=== PATIENT | female | born 1960 | race Caucasian/White ===

== ENCOUNTER → 2017-01-20 | Outpatient (CLI) | payer OTHER ==
[~2017-01-20] VITALS: Ht 165.1 cm; Wt 98.5 kg
[~2017-01-20] MED LIST: ADULT LOW DOSE81 MG PO; ADVAIR 250-501 EACH INH; AMBIEN 10 MG TA10 MG PO; AMBIEN 5 MG TABL5 M1 PO; ASMANEX0.24 G1 INH; BYSTOLIC 5 MG5 M1 PO; CALCIUM 600 +1 EAC1 PO; CALCIUM CITRAT1 EA15 PO; CENTRUM SILVER1 EAC1 PO; COLACE100 MG PO; CRESTOR5 MG PO; CYMBALTA60 MG PO; DYAZIDE 37.5-21 EACH PO; FIBER TABS625 MG PO; FIBER0.52 GM PO; FISH OIL 1,0001 EAC5 PO; FISH OIL 1,2001 EAC4 PO; FISHOIL; FLEXERIL PO; FOSAMAX 70 MG T70 M1 PO; GABAPENTIN600 M1 PO; HYDROCODONE-APA1 TA1 PO; IBUPROFEN 200200 M1 PO; IBUPROFEN 600600 M1; IBUPROFEN 600600 M1 PO; LOPRESSOR50 PO; LORTAB PO; MAXZIDE 75-501 EACH PO; NABUMETONE 750750 M1 PO; NEURONTIN 300300 M1 PO; NEURONTIN 300M300 M2 PO; NEURONTIN600 MG PO; NIACIN 100MG T100 M1 PO; NIACIN ER750 MG PO; NORCO 5-325 TA1 EACH PO; NORCO 7.5-3251 EACH PO; NUCYNTA50 MG PO; ONE-A-DAY WOMENS PO; PRILOSEC 20 MG20 MG PO; PROZAC 20 MG20 M1 PO; PROZAC40 MG PO; PSYLLIUM FIBE0.52 GM PO; QVAR HFA 440 MCG/UN1 INH; SINGULAIR 10 MG10 M1 PO; TOPROL XL50 MG PO; TRAMADOL 50 MG50 MG PO; VICODIN 5-3001 EACH PO; WELLBUTRIN XL300 MG PO; ZOCOR40 MG PO; ZOFRAN ODT4 MG PO
--- NOTE | ~2017-01-20 | HPC ---
[facility] [place] [address] PAIN MANAGEMENT CONSULTATION Name: SARMAD EKNT Room #: REG JADEN Conrad#: [id number] Admission: 01/20/17 Attend Phys: Bhupinder Kasper DO Discharge: Date of : 62 Report #: [id number] THIS REPORT FOR: //name// CC: MARY Kasper HISTORY OF PRESENT ILLNESS: The patient is a very pleasant 56-year-old female, prior seen in pain clinic greater than 3 years ago, in July 2013. She ultimately progressed to have revision of her L4-L5 laminectomy with excellent improvement of symptoms that was in July 2013. The patient returns to pain clinic today for consultation of new pain in the left low back, buttock, and leg. She notes following the fusion she did actually very well for about 6 months and did require a third surgery, another revision in June 2014. Following that she has done actually very well. At that time, they did bilateral L4-L5 transpedicular screws and rods. She notes in the past 4+ weeks, she has had pain in the left gluteal area radiating to the groin and down the posterior leg. Her prior symptoms had always been on the right side. She notes pain is exacerbated with standing and movement. She has some subjective weakness in the left leg, though she notes overall she feels she has been little weaker following surgeries. She denies any specific paresthesia, saddle anesthesia or bowel or bladder continence changes. The patient has continued to take anti-inflammatory medications, has used ice, heat and stretching, tramadol p.r.n. with some efficacy. Unfortunately, along with the nabumetone, she has also used little Advil. She was cautioned about using egregious amounts of nonsteroidal anti-inflammatory medications for fear of both gastritis and renal disease. REVIEW OF SYSTEMS: Complete review of systems was gone over with the patient. History of asthma for which she uses an Advair metered dose inhaler, hypertension treated with metoprolol, chronic anxiety and depression for which she takes bupropion. She does have some ongoing gastroesophageal reflux, well treated with Prilosec. SURGICAL HISTORY: As noted above. PHYSICAL EXAMINATION: GENERAL: Reveals a pleasant 56-year-old female, BMI is approximately 28 kilograms per meter squared. VITAL SIGNS: Stable. NEUROLOGIC: Alert and oriented to person, place and time; judged to be a reasonable historian. HEART: Regular and rhythmical, without murmur. LUNGS: Clear to auscultation. MUSCULOSKELETAL: Upper extremity strength is preserved. Rises from chair using [facility] [address] [place] [address] PAIN MANAGEMENT CONSULTATION Name: SARMAD KENT [facility] [id number] Admission: 01/20/17 Attend Phys: Bhupinder Kasper DO Discharge: Date of : 62 Report #: [id number] armrest. Gait is generally tandem. Lumbar flexion is modestly limited. Well-healed long midline scar compatible with surgical history. Pain is exacerbated with resistance to external rotation of the left leg. Passive internal rotation exacerbates pain. Abduction does not exacerbate pain. Lower extremity strength is generally symmetric. Modestly positive straight leg raise on the left. DIAGNOSTIC STUDIES: There are no recent diagnostic studies available for evaluation at this time. ASSESSMENT: Symptomatic lumbar radiculopathy s/p laminectomy with component of left piriformis syndrome. RECOMMENDATIONS: 1. Left piriformis injection today under fluoroscopy. 2. Follow up in 2 weeks for reevaluation, may consider left transforaminal epidural injection in the lumbar spine if indicated clinically. Thank you for allowing me to participate in the patient's care. I will keep you abreast of her progress. PROCEDURE NOTE: Left piriformis injection under fluoroscopy. PROCEDURE: After written informed consent was obtained, the patient was taken to fluoroscopy suite, placed in prone position. After sterile prep and drape, skin was raised. A 22-gauge stylet needle was placed to contact the inferior aspect of the left SI joint. Needle was withdrawn and redirected 1-2 cm caudad passing the SI joint and it was then advanced about another centimeter deeper. Negative aspiration was accomplished. 1 mL of Omnipaque was injected, which showed spread within the striations appropriately oriented for the piriformis muscle, followed with 40 mg triamcinolone plus 2 mL of 0.5% preservative-free bupivacaine. Needle was removed, the area was cleansed, Band-Aid was applied. The patient was monitored for an appropriate period of time, discharged in good and stable condition. <ELECTRONICALLY SIGNED> By: Bhupinder Kasper DO 01/24/17 0759 0624 0844 Bhupinder Kasper DO /nt
[2017-01-20 09:44] VITALS: BP 127/83
== END | disposition home or self-care (01) ==
LOC: PAIN 06:35
DX: G57.02 Lesion of sciatic nerve, left lower limb (principal); I10 Essential (primary) hypertension; J45.909 Unspecified asthma, uncomplicated; F32.89 Other specified depressive episodes; F41.8 Other specified anxiety disorders; K21.9 Gastro-esophageal reflux disease without esophagitis; Z79.899 Other long term (current) drug therapy; Z98.890 Other specified postprocedural states; Z87.891 Personal history of nicotine dependence

== ENCOUNTER → 2017-03-10 | Outpatient (CLI) | payer OTHER ==
[~2017-03-10] VITALS: Ht 165.1 cm; Wt 98.0 kg
[~2017-03-10] MED LIST changes: +HYDROCODONE-AP1 EAC6 PO
--- NOTE | ~2017-03-10 | HPC ---
[facility] [place] [address] [place] [address] PAIN MANAGEMENT CONSULTATION Name: SARMAD KENT Room #: REG [facility] Makenzie.#: [id number] Admission: 03/10/17 Attend Phys: Bhupinder Kasper DO Discharge: Date of : 62 Report #: [id number] THIS REPORT FOR: //name// CC: Анна Kasper The patient is a very pleasant 56-year-old female, prior seen in the pain clinic for symptomatic lumbar radiculopathy status post decompressive laminectomy, component of left piriformis syndrome. She was seen 01/20/2017, though prior she had not been seen for several years. She had progressed to have a L4-L5 laminectomy in July of 2013, did well for a number of years. She returned to the pain clinic with increasing pain in the left gluteal area and down the leg. On longer discussion with the patient, she had ultimately progressed to have bilateral L4-L5 transpedicular screw and robyn fusion. Left gluteal pain radiating down the groin and leg have become more and more problematic. Had a component of piriformis generated pain, which we treated at last visit. She returns to pain clinic today for moderately prolonged visit. She notes that the piriformis injection did afford 80% relief for about 2 days but pain gradually recurred. I am curious now if perhaps that was simply ineffective IM steroid. Her pain is actually more in a radicular pattern at this point. It is in the left buttock, posterior thigh, exacerbated with walking, standing and driving. Rates pain 8 on a VAS. Physical exam shows 56-year-old female, BMI 35.9 kilograms per meter squared. Vital signs stable as noted on the EMR. She does not use tobacco products (former smoker). Rises from chair using armrest, modestly antalgic gait. Objective decrease in left hip flexion strength, decreased patellar reflex bilaterally. Positive straight leg raise at 30 degrees in the left. Subjective dysesthesia in L5 distribution on the left. There are no diagnostic studies subsequent to the patient's prior extensive back surgery. ASSESSMENT: 1. Symptomatic lumbar radiculopathy by clinical exam and history, ongoing neuropathic pain component with neurogenic claudication. 2. Left piriformis syndrome, generally improved. RECOMMENDATIONS: 1. Discussion with the patient today about therapeutic option. We will seek authorization for left L4-L5 transforaminal epidural injection at next visit. 2. We will start the patient on gabapentin 300 mg 1 at bedtime for 3 days, 2 at bedtime for 3 days with a target dose of 1 in the morning, 2 at night. 3. Hydrocodone 5/325, taken the liberty of writing for 75 tablets. Tramadol is not helping with her pain at present. 4. Continue nabumetone [address] [place] [address] PAIN MANAGEMENT CONSULTATION Name: SARMAD KENT Room #: REG JADEN Conrad#: [id number] Admission: 03/10/17 Attend Phys: Bhupinder Kasper DO Discharge: Date of : 62 Report #: [id number] 5. Follow up after transforaminal epidural injection at next visit, if symptoms remain problematic will need a new MRI with and without contrast. The patient discharged in good and stable condition after prolonged visit, she was seen from approximately 11:53-12:20. Greater than 50% of this 25 plus minute visit was spent counseling the patient. <ELECTRONICALLY SIGNED> By: Bhupinder Kasper DO 03/11/17 0757 1245 1810 Bhupinder Kasper DO /nt
[2017-03-10 11:47] VITALS: BP 140/89
== END ==
LOC: PAIN 03-03 06:40
DX: M54.16 Radiculopathy, lumbar region (principal); Z98.890 Other specified postprocedural states

== ENCOUNTER → 2017-03-17 | Outpatient (CLI) | payer OTHER ==
[~2017-03-17] VITALS: Ht 165.1 cm; Wt 97.6 kg
--- NOTE | ~2017-03-17 | HPC ---
[address] [address] PAIN MANAGEMENT CONSULTATION Name: SARMAD KENT [id number] Admission: 03/17/17 Attend Phys: Bhupinder Kasper DO Discharge: Date of : 62 Report #: [id number] THIS REPORT FOR: //name// CC: Анна Kasper The patient is a 56-year-old female, prior seen 03/10/2017, diagnosed with recurrent left L4 radicular pain. S/P L4-L5 laminectomy fusion in 2013, last visit she had ongoing left L4 radicular pain, we started the patient on gabapentin and sought authorization for left L4-L5 transforaminal epidural injection. She presents to the pain clinic today for this injection. She notes some efficacy with gabapentin. No untoward sedation. She does wish to proceed with injection today with ongoing pain, low back, buttock, lateral leg to thigh. ASSESSMENT: Symptomatic lumbar radiculopathy status post decompressive laminectomy. PROCEDURE: Left L4-L5 transforaminal epidural injection. PROCEDURE NOTE: After both written and informed consent was obtained including risk of spinal cord damage, infection, increased pain and paralysis, the patient agreed to proceed. The patient was taken to the fluoroscopy suite, placed in a prone position with appropriate abdominal bolstering. After sterile prep with ChloraPrep and sterile drape, a skin wheal with 1% Xylocaine was raised. A 22 gauge 4-1/2 inch epidural Tuohy needle was inserted. From an oblique approach into the posterior-superior aspect of the left L4-L5 neural foramen with continuous pressure on the glass syringe plunger for loss of resistance. Glass syringe was filled with 2 mL of 0.1 Xylocaine. The glass loss of resistance syringe was removed. A low volume extension tubing was connected, negative aspiration was accomplished for cerebrospinal fluid or blood. 1 mL of Omnipaque was injected which showed spread both within the epidural space and laterally along the nerve root. This was followed with 80 mg of triamcinolone plus 1 mL of 1.5% preservative-free Xylocaine. Needle was partially withdrawn, 0.5 mL of Xylocaine was injected to clear the needle and the needle was removed. The area was cleansed, Band-Aid was applied. The patient was allowed to ambulate to the recovery room, discharged in good and stable condition. <ELECTRONICALLY SIGNED> By: Bhupinder Kasper DO 03/18/17 0725 0938 [id number] Bhupinder Kasper DO /nt
[2017-03-17 09:09] VITALS: BP 121/77
== END | disposition home or self-care (01) ==
LOC: PAIN 06:42
DX: M54.16 Radiculopathy, lumbar region (principal); Z98.890 Other specified postprocedural states; Z87.891 Personal history of nicotine dependence

== ENCOUNTER → 2017-04-14 | Outpatient (CLI) | payer OTHER ==
[~2017-04-14] VITALS: Ht 162.6 cm; Wt 97.5 kg
--- NOTE | ~2017-04-14 | HPC ---
[facility] [place] [address] [place] [address] PAIN MANAGEMENT CONSULTATION Name: SARMAD KENT Room #: [facility] [id number] Admission: 04/14/17 Attend Phys: Bhupinder Kasper DO Discharge: Date of : 62 Report #: [id number] THIS REPORT FOR: //name// CC: Анна Kasper The patient is a very pleasant 56-year-old female, prior seen in the pain clinic 03/17/2017, given a left L4-L5 transforaminal epidural injection at that time. She returns to pain clinic today noting that the injection afforded significant improvement in baseline pain, the patient notes specifically 80% improvement for 1 to 1-1/2 weeks, pain has gradually begun to recur without antecedent trauma and overuse, rates pain a 7 on VAS, pain is in the left buttock, posterior thigh, exacerbated with sitting, bending, climbing stairs. PHYSICAL EXAMINATION: Shows a 56-year-old female, BMI is 36.9 kg/m2. Vital signs are stable as noted in the EMR. Subjective pain score is 7 on VAS. She has not fallen in the last 3 months. She is hypertensive, medication list was reconciled. Functional risk assessment tool scores are at 35/70. She is a former smoker. Rises from chair using armrest, modestly antalgic gait, diffuse tenderness across the low back, positive straight leg raise on the right. ASSESSMENT: Symptomatic lumbar radiculopathy by clinical exam and history. RECOMMENDATIONS: 1. We will seek authorization for repeat left L4-L5 transforaminal epidural injection at next visit. 2. We will seek authorization for MRI with and without contrast. Last MRI is quite dated from 2009 prior to the patient's L4-L5 posterior fusion and decompression. The patient was discharged in good and stable condition. We will seek authorization for repeat left L4-L5 transforaminal epidural injection at next visit. We will request MRI as noted above. If symptoms do not resolve following this injection, the patient may benefit from spinal cord stimulator trial versus referral to surgery for further decompression. <ELECTRONICALLY SIGNED> By: Bhupinder Kasper DO 04/18/17 0747 1234 1816 Bhupinder Kasper DO /nt
[2017-04-14 10:13] VITALS: BP 127/75
== END ==
LOC: PAIN 06:31
DX: M54.16 Radiculopathy, lumbar region (principal)

== ENCOUNTER → 2017-04-20 | Outpatient (CLI) | payer OTHER | LOC: MRI 02-01 08:06 | DX: M54.16 Radiculopathy, lumbar region (principal); M51.26 Other intervertebral disc displacement, lumbar region; M43.16 Spondylolisthesis, lumbar region ==

== ENCOUNTER → 2017-04-25 | Outpatient (CLI) | payer OTHER ==
[~2017-04-25] VITALS: Ht 162.6 cm; Wt 97.8 kg
--- NOTE | ~2017-04-25 | HPC ---
[facility] [place] [address] [place] [address] PAIN MANAGEMENT CONSULTATION Name: SARMAD KENT Room #: REG [facility] Makenzie.#: [id number] Admission: 04/25/17 Attend Phys: Bhupinder Kasper DO Discharge: Date of : 62 Report #: [id number] THIS REPORT FOR: //name// CC: Анна Kasper The patient is a 56-year-old female being treated for symptomatic lumbar radiculopathy, status post L4-L5 pedicle fusion. She had a left L4-L5 transforaminal epidural injection at last visit 03/17/2017. Ongoing radicular symptoms, I ordered a repeat MRI. We reviewed this with the patient today. MRI of the lumbar spine with and without contrast shows a prior interval fusion at L4-L5 with stable grade 1 anterolisthesis. There is a small right paracentral disk protrusion slightly effacing the right L4-L5 lateral recess, though it does appear smaller when compared to the prior exam (presurgical 07/05/2013). There is no dramatic stenosis, though she does have ongoing left L4 radicular symptoms and did have prior relief with last L4-L5 transforaminal epidural injection. PHYSICAL EXAMINATION: Today does show pleasant 56-year-old female, BMI is 37 kg/m2. Subjective pain score is 7 on a VAS. Vital signs are stable. She has not fallen since last visit. Rises from chair using armrest. Diffuse tenderness across the low back. Positive straight leg raise on the left with slight decreased left hip flexion strength and diminished left patellar reflex. ASSESSMENT: Symptomatic lumbar radiculopathy status post decompressive laminectomy, ongoing left L4 radicular symptoms. RECOMMENDATION: Long discussion with the patient today about therapeutic options. 1. We will repeat left L4-L5 transforaminal epidural injection today. 2. We did talk about a spinal cord stimulator as a possible therapeutic option. Risks and benefits of this possible therapeutic intervention were discussed at length today. We also discussed the aforementioned MRI. She has, by definition, "failed back syndrome". The patient was discharged today in good and stable condition after epidural injection in the left L4-L5 transforaminal. We did give the patient print and video literature regarding high frequency spinal cord stimulator ([employer]). The patient is to continue with hydrocodone 5/325. No prescription was generated today. PROCEDURE: Left L4-L5 transforaminal epidural injection under fluoroscopy. PROCEDURE NOTE: After both written and informed consent was obtained including risk of spinal cord damage, infection, increased pain and paralysis, the patient agreed to proceed. The patient was taken to the fluoroscopy suite, placed in a prone position with appropriate abdominal bolstering. After sterile prep with ChloraPrep and sterile drape, a skin wheal with 1% Xylocaine was raised. A [address] [address] PAIN MANAGEMENT CONSULTATION Name: SARMAD KENT [id number] Admission: 04/25/17 Attend Phys: Bhupinder Kasper DO Discharge: Date of : 62 Report #: [id number] gauge 4-1/2 inch epidural Tuohy needle was inserted. From an oblique approach into the posterior-superior aspect of the left L4-L5 neural foramen with continuous pressure on the glass syringe plunger for loss of resistance. Glass syringe was filled with 2 cc of 0.1 Xylocaine. The glass loss of resistance syringe was removed. A low volume extension tubing was connected, negative aspiration was accomplished for cerebrospinal fluid or blood. 1 mL of Omnipaque was injected which showed spread both within the epidural space and laterally along the nerve root. This was followed with 80 mg of triamcinolone plus 1 mL of 1.5% preservative-free Xylocaine. Needle was partially withdrawn, 0.5 mL of Xylocaine was injected to clear the needle and the needle was removed. The area was cleansed, band-aid was applied. The patient was allowed to ambulate to the recovery room, discharged in good and stable condition. Again, the patient has had 3 back surgeries in short order, last surgery being the aforementioned L4-L5 transpedicular screw and robyn. She is desirous of trying to do anything to avoid further surgery. Again, if she does have ongoing symptoms and Dr. Doc Morales does not feel she is a further surgical candidate, we will move forward with spinal cord stimulator trial. <ELECTRONICALLY SIGNED> By: Bhupinder Kasper DO 04/27/17 0820 1609 1918 Bhupinder Kasper DO /nt
[2017-04-25 13:02] VITALS: BP 124/78
== END | disposition home or self-care (01) ==
LOC: PAIN 07:27
DX: M54.16 Radiculopathy, lumbar region (principal); M96.1 Postlaminectomy syndrome, not elsewhere classified; G89.29 Other chronic pain; Z98.890 Other specified postprocedural states; Z87.891 Personal history of nicotine dependence; Z79.891 Long term (current) use of opiate analgesic; Z79.899 Other long term (current) drug therapy

== ENCOUNTER → 2018-01-19 | Outpatient (CLI) | payer OTHER ==
[~2018-01-19] VITALS: Ht 162.6 cm; Wt 99.3 kg
--- NOTE | ~2018-01-19 | HPC ---
[facility] [place] [address] [place] [address] PAIN MANAGEMENT CONSULTATION Name: NIKKIAMYSARMAD C Room #: REG [facility] Emery.#: [id number] Admission: 01/19/18 Attend Phys: Theron Khan MD Discharge: Date of : 62 Report #: [id number] THIS REPORT FOR: //name// CC: MARY Khan DATE OF SERVICE: 01/19/2018 Followup visit for chronic low back pain with radiating pain into both legs. This is my first visit with the patient who has had a longstanding relationship with my partner, Dr. Bhupinder Kasper. Bhupinder has now gone to [place] and we have assumed care of her at the clinic at [facility]. She has had chronic back pain for a number of years. Several years ago, she underwent a lumbar 4-[address] Doc Morales. Prior to surgery, she had right lumbar radiculopathy. She reports that after surgery, she was nearly cured for 2-3 years, but then began experiencing a new pain on the left. This radiated down the L5-S1 distribution in the back of the leg, into the calf and more recently she has had newer symptoms into the anterior thighs that would be consistent with radiculopathy bilateral in the L3 distribution above the level of her fusion. Pain intensity has gotten worse, it is 7/10. In addition to her back pain, she deals with other aches and pains including pain in her feet and ankles and she has plantar fasciitis, which is really quite miserable. She cannot walk. She tried rowing and this was difficult because sitting is also an uncomfortable position. She tries to move, but this is difficult. SOCIAL HISTORY: Shared with me today is that she is a retired physical therapist. She understands addiction clearly because she has a daughter who is going through opioid treatment at the age of 27. She injured herself severely playing soccer at the age of 15, was on opioids briefly after surgery and again at the age of 18. She also lost her father around that time and there was another in the family that led to additional social stresses and between the pain and the availability of oral medication she became an opioid addict. 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 This has made her mother quite aware of the risk side of opioids for the treatment of intractable pain and we had a good discussion about her current use, which is quite modest. MEDICATIONS: 75 tablets of hydrocodone 5/325 were provided for her by Dr. Bhupinder Kasper on 03/10/2017 was enough that she is just now requesting another prescription. She obviously uses it very infrequently. [address] [address] PAIN MANAGEMENT CONSULTATION Name: SARMAD KENT Room #: REG JADEN Conrad#: [id number] Admission: 01/19/18 Attend Phys: Theron Khan MD Discharge: Date of : 62 Report #: [id number] She has found gabapentin to be helpful at a dose of 300 mg t.i.d. Today, we talked about increasing her dose and I would not immediately double it, though I would allow her to titrate her dose upwards, first to 1200, then 1500 and finally to 1800 watching carefully for side effects of swelling, dizziness, lightheadedness, and she should have her electrolytes checked as well. I reviewed her x-rays showing the posterior fusion with a grade 1 anterolisthesis at 4-5. We have not had any recent x-rays. PHYSICAL EXAMINATION: She is a pleasant female, although she admits to depression because of her chronic pain and this is situational. Her blood pressure is 126/69, heart rate 96, BMI 37.8. We talked about weight loss. She denies use of tobacco or alcohol. She is able to move from sitting to standing position, ambulates with mild antalgic feature. She has pain with forward flexion and extension. She has a small scar over her back. She had a complication with her previous surgery and I was pleased to see that there was an excessive tissue loss. It was treated aggressively with antibiotics early on. IMPRESSION: Post-laminectomy syndrome with radiculopathy. She is a candidate for an epidural injection. PLAN: I have also agreed to write for gabapentin at 3-month interval and see her back. She was given 1 prescription for hydrocodone 5/325, #75 tablets. She will carefully safeguard her medications under terms and agreement established with our clinic through Dr. Kasper. She must be very cautious about this medication with an addict in the house. By: [id number] Theron Khan MD /nt
[2018-01-19 13:59] VITALS: BP 126/69
== END ==
LOC: PAIN 10:08
DX: M54.16 Radiculopathy, lumbar region (principal); M96.1 Postlaminectomy syndrome, not elsewhere classified; Z79.899 Other long term (current) drug therapy

== ENCOUNTER → 2018-01-31 | Outpatient (CLI) | payer OTHER ==
[~2018-01-31] VITALS: Ht 162.6 cm; Wt 100.4 kg
--- NOTE | ~2018-01-31 | HPC ---
[facility] [place] [address] PAIN MANAGEMENT CONSULTATION Name: SARMAD KENT Yary Room #: REG [facility].#: [id number] Admission: 01/31/18 Attend Phys: Theron Khan MD Discharge: Date of : 62 Report #: [id number] THIS REPORT FOR: //name// CC: Анна Khan DATE OF SERVICE: 01/31/2018 Followup visit for chronic low back pain with radiculopathy. The patient returns to pain clinic today complaining of bilateral lumbar radicular symptoms. Pain radiates into both legs. She has had a previous fusion. Dr. Kasper has performed a transforaminal injection between the 2 pedicle screws at L3-L4. It appears today that her pain may be coming from the more mobile segment above at L2-L3. I have recommended that we perform transforaminal epidural injections at that level. She was last seen on 01/19/2018. There were no significant changes since her visit at that time. I discussed the procedure with her in some detail using a skeleton and models to discuss the injections. She is anxious to proceed. IMPRESSION: Post-laminectomy syndrome with fusion. Bilateral lumbar radiculopathy. PROCEDURE: Bilateral L2-L3 transforaminal epidural injection under fluoroscopic guidance. DESCRIPTION OF PROCEDURE: She was taken to the fluoroscopic suite, placed prone, skin was prepped with ChloraPrep. Skin was anesthetized over the L2-L3 neural foramen and using triplanar fluoroscopic views, I advanced needle into the epidural space. 1 mL of Omnipaque was injected and spread of dye was seen along the nerve root and into the epidural space followed then by 2 mL of 0.5% lidocaine and 40 mg of triamcinolone. The procedure was performed on the left and then the right in identical fashion. The bilateral procedure was completed without complication and she was in recovery room with the pain score of 0 at the time of discharge. PLAN: Follow up on an as needed basis. She will continue on hydrocodone [address] [address] PAIN MANAGEMENT CONSULTATION Name: SARMAD KENT Room #: REG [facility].#: [id number] Admission: 01/31/18 Attend Phys: Theron Khan MD Discharge: Date of : 62 Report #: [id number] no more than 2-1/2 tablets daily as determined by prescription provided at last visit. By: [id number] Theron Khan MD /nt
[2018-01-31 11:01] VITALS: BP 134/81
== END | disposition home or self-care (01) ==
LOC: PAIN 10:25
DX: M54.16 Radiculopathy, lumbar region (principal); M96.1 Postlaminectomy syndrome, not elsewhere classified; Z98.1 Arthrodesis status; Z98.890 Other specified postprocedural states; Z79.899 Other long term (current) drug therapy; Z87.891 Personal history of nicotine dependence